=== PATIENT | female | born 1980 | race Caucasian/White ===

== ENCOUNTER 2016-10-22 17:44 | Emergency (ER) | payer OTHER ==
--- NOTE | 2016-10-22 17:48 | PDOC ---
History of Present Illness - General History Source: Patient Exam Limitations: No Limitations - History of Present Illness Initial Comments: 10/22/16 17:58 Patient is 35 year old female with no significant past medical history who presents to the ED with right eye pain, redness and burning to the right eye. Patient states that she got home from the gym and started to feel as if something was in her eye. Patient was rubbing and scratching the eye. She noticed redness and burning of the eye as well as pain upon blinking. 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) Diabetes: No HTN: No Seizures: No Thyroid Disease: No - Reproductive History (#): 3 Para: 2 Cervical CA: No Dysfunctional Uterine Bleeding: No Ectopic : No Endometrial CA: No Polycystic Ovaries: No Therapeutic (s) & number: No Tubal Ligation: No - Immunization History Immunization Up to Date: Yes - Psycho/Social/Smoking Cessation Hx Anxiety: No Suicidal Ideation: No Smoking Status: No Smoking History: Never smoked Have you smoked in the past 12 months: No Number of Cigarettes Smoked Daily: 0 Cigars Per Day: 0 Hx Alcohol Use: No Drug/Substance Use Hx: No Substance Use Type: None Hx Substance Use Treatment: No <Magdi Sood - Last Filed: 10/22/16 18:06> - Past Medical History Allergies/Adverse Reactions: Allergies Allergy/AdvReac Type Severity Reaction Status Date / Time No Known Allergies Allergy Verified 10/22/16 17:45 Home Medications: Ambulatory Orders Ondansetron [Zofran *Odt*] 8 mg SL TID #30 od.tablet 10/22/16 Oxycodone HCl/Acetaminophen [Percocet 5-325 mg Tablet] 1 - 2 tab PO Q6H #20 tab MDD 6 10/22/16 Tobramycin 0.3% Ophth Soln [Tobrex Ophthalmic Solution -] 2 drop OD QID #5 ml Review of Systems - Review of Systems Able to Perform ROS?: Yes Comments:: 10/22/16 17:59 GENERAL/CONSTITUTIONAL: No fever or chills. No weakness. HEAD, EYES, EARS, NOSE AND THROAT: (+)right eye pain, burning and redness. No change in vision. No ear pain or discharge. No sore throat. CARDIOVASCULAR: No chest pain or shortness of breath. RESPIRATORY: No cough, wheezing, or hemoptysis. GASTROINTESTINAL: No nausea, vomiting, diarrhea or constipation. GENITOURINARY: No dysuria, frequency, or change in urination. MUSCULOSKELETAL: No joint or muscle swelling or pain. No neck or back pain. SKIN: No rash NEUROLOGIC: No headache, vertigo, loss of consciousness, or change in strength/ sensation. ENDOCRINE: No increased thirst. No abnormal weight change. HEMATOLOGIC/LYMPHATIC: No anemia, easy bleeding, or history of blood clots. ALLERGIC/IMMUNOLOGIC: No hives or skin allergy. <Jasmyne Josue - Last Filed: 10/22/16 18:02> *Physical Exam - Vital Signs Last Vital Signs Temp Pulse Resp BP Pulse Ox 98.0 F 82 18 108/69 100 10/22/16 17:45 10/22/16 17:45 10/22/16 17:45 10/22/16 17:45 10/22/16 17:45 - Physical Exam Comments: 10/22/16 17:59 GENERAL: Awake, alert, and fully oriented, in no acute distress HEAD: No signs of trauma EYES: (+)[place] shaped scratch from 10 to 7 oclock position, (+)Chemosis. PERRLA, EOMI, sclera anicteric, conjunctiva clear ENT: Auricles normal inspection, hearing grossly normal, nares patent, oropharynx clear without exudates. Moist mucosa NECK: Normal ROM, supple, no lymphadenopathy, JVD, or masses LUNGS: Breath sounds equal, clear to auscultation bilaterally. No wheezes, and no crackles HEART: Regular rate and rhythm, normal S1 and S2, no murmurs, rubs or gallops ABDOMEN: Soft, nontender, normoactive bowel sounds. No guarding, no rebound. No masses EXTREMITIES: Normal range of motion, no edema. No clubbing or cyanosis. No cords, erythema, or tenderness NEUROLOGICAL: Cranial nerves II through XII grossly intact. Normal speech, normal gait SKIN: Warm, Dry, normal turgor, no rashes or lesions noted. <Jasmyne Josue - Last Filed: 10/22/16 18:02> Medical Decision Making - Medical Decision Making 10/22/16 18:01 35 yo F with no pmhx who presents to the ED with right eye pain, burning and redness. Patient's right eye will be washed out and she will be discharged home with pain medication. <Jasmyne Josue - Last Filed: 10/22/16 18:02> *DC/Admit/Observation/Transfer - Attestations Scribe Attestion: 10/22/16 18:02 Documentation prepared by VIPUL Weaver, acting as biomedical analytical scientist for Magdi Sood DO. <Jasmyne Josue - Last Filed: 10/22/16 18:02> - Attestations Physician Attestion: 10/22/16 17:48 I, Dr. Magdi Sood, attest that this document has been prepared under my direction and personally reviewed by me in its entirety. I further attest, that it accurately reflects all work, treatment, procedures and medical decision -making performed by me. <Magdi Sood - Last Filed: 10/22/16 18:06> Diagnosis at time of Disposition: Keratoconjunctivitis - Discharge Dispostion Condition at time of disposition: Stable - Prescriptions Prescriptions: Oxycodone HCl/Acetaminophen [Percocet 5-325 mg Tablet] 1 - 2 tab PO Q6H #20 tab MDD 6 Tobramycin 0.3% Ophth Soln [Tobrex Ophthalmic Solution -] 2 drop OD QID #5 ml Ondansetron [Zofran *Odt*] 8 mg SL TID #30 od.tablet - Referrals Referrals: Velasquez Pandya MD [Staff Physician] - - Patient Instructions Printed Discharge Instructions: DI for Corneal Abrasion, DI for Conjunctivitis Additional Instructions: Tia- Percocet is for really bad pain. Zofran is for the nausea that will come with taking the percocet. Tobramycin is to be dropped into the eye four times a day until you see the ophthalomologist. If you are getting worse rather than better..... come back to us. Hope you feel a lot better by tomorrowl. Dr. Magdi Sood
[2016-10-22 17:49] VITALS: BP 108/69; PULSE 82; TEMP 98; BMI 23.4
[2016-10-22] MEDS ORDERED: FLUORESCEIN NA 1 EA STRIP ONE (17:50)
[2016-10-22] MEDS ORDERED: TETRACAINE 0.5% OPHTH SOLN 2 ML BOTTLE ONE (17:50)
[2016-10-22] MEDS ORDERED: TETRACAINE 0.5% HCL 0.6ML DROPPER.BOTTLE OD ONE (17:58)
== END 2016-10-22 18:35 | disposition home or self-care (01) ==
LOC: FER 17:44
DX: H16.209 Unspecified keratoconjunctivitis, unspecified eye (principal); I47.1 Supraventricular tachycardia
CPT/HCPCS: 99282-25